=== PATIENT | male | born 1985 | race Caucasian/White ===

== ENCOUNTER 2021-06-14 23:56 | Emergency (ER) | payer MEDICAID, OTHER ==
[~2021-06-14] VITALS: Ht 180.3 cm; Wt 67.0 kg
[2021-06-14 23:58] VITALS: BP 119/61
== END 2021-06-15 02:08 | disposition home or self-care (01) ==
LOC: ER 23:57
DX: M79.645 Pain in left finger(s) (principal); Z88.8 Allergy status to other drugs, medicaments and biological substances; Z56.0 Unemployment, unspecified; Z59.0 Homelessness
CPT/HCPCS: 99283